=== PATIENT | male | born 1965 | race Caucasian/White ===

== ENCOUNTER 2017-05-13 09:11 | Inpatient (IN) | payer OTHER ==
[~2017-05-13] VITALS: Ht 193 cm; Wt 80.4 kg
[2017-05-13 09:49] LABS: BASOPHILS % (AUTO) 0.3 % (0-1); EOSINOPHILS # (AUTO) 0.1 X10'3 (0-0.9); EOSINOPHILS % (AUTO) 1.4 % (0-6); HEMATOCRIT 42.7 % (42.0-52.0); HEMOGLOBIN 14.9 g/dl (14.0-17.9); LYMPHOCYTES # (AUTO) 0.9 X10'3 (1.1-4.8); LYMPHOCYTES % (AUTO) 15.4 % (21-51); MEAN CORPUSCULAR HEMOGLOBIN 31.8 PG (27.0-31.0); MEAN CORPUSCULAR VOLUME 90.9 FL (78-98); MEAN PLATELET VOLUME 8.3 FL (7.4-10.4); MONOCYTES # (AUTO) 0.5 X10'3 (0-0.9); MONOCYTES % (AUTO) 8.1 % (2-12); NEUTROPHILS # (AUTO) 4.5 X10'3 (1.8-7.7); NEUTROPHILS % (AUTO) 74.8 % (42-75); PLATELET COUNT 185 X10'3 (140-440); RED CELL DISTRIBUTION WIDTH 14.1 % (11.5-14.5); WHITE BLOOD COUNT 6.1 X10'3 (4.5-11.0)
[2017-05-13 10:11] LABS: URINE AMPHETAMINE SCREEN NEGATIVE (Neg); URINE BARBITUATE SCREEN NEGATIVE (Neg); URINE BENZODIAZEPINES SCREEN NEGATIVE (Neg); URINE CANNABINOID SCREEN NEGATIVE (Neg); URINE COCAINE SCREEN NEGATIVE (Neg); URINE METHADONE SCREEN NEGATIVE (Neg); URINE OPIATE SCREEN NEGATIVE (Neg); URINE PHENCYCLIDINE SCREEN NEGATIVE (Neg)
[2017-05-13 10:12] LABS: ALANINE AMINOTRANSFERASE 54 U/L (12-78); ALBUMIN 4.3 G/DL (3.4-5.0); ALBUMIN/GLOBULIN RATIO 1.3 (1.1-1.5); ALKALINE PHOSPHATASE 107 IU/L (46-116); ANION GAP 5 (8-16); ASPARTATE AMINO TRANSFERASE 47 U/L (10-37); BILIRUBIN,TOTAL 0.4 MG/DL (0.1-1.0); BLOOD UREA NITROGEN 15 MG/DL (7-18); BUN/CREATININE RATIO 16.7 (5.4-32.0); CALCIUM 9.3 MG/DL (8.5-10.1); CHLORIDE 107 MMOL/L (99-107); GLUCOSE 81 MG/DL (70-104); POTASSIUM 4.5 MMOL/L (3.5-5.1); SODIUM 144 MMOL/L (135-145); TOTAL CARBON DIOXIDE 32.2 MMOL/L (24-32); TOTAL PROTEIN 7.5 G/DL (6.4-8.2); eGFR 88 ML/MIN
[2017-05-13] MEDS ORDERED: magnesium 2GM in 50ml NS 50 ML IV PRN (11:20)
[2017-05-13] MEDS ORDERED: potassium Cl 20 mEq SR tablet PO PRN ×2 (11:20)
[2017-05-13] MEDS ORDERED: potassium Cl 40MEQ/NS 500ml 500 ML IV PRN ×2 (11:20)
[2017-05-13] MEDS ORDERED: magnesium Cl slow-release 64mg tablet PO PRN (11:20)
[2017-05-13] MEDS ORDERED: magnesium hydroxide 30ml (MOM) UD suspension PO PRN (11:20)
[2017-05-13] MEDS ORDERED: ondansetron/PF 4mg/2ml inj IV PRN (11:20)
[2017-05-13] MEDS ORDERED: bisacodyl 10mg suppository rectal RC PRN (11:20)
[2017-05-13] MEDS ORDERED: mag hydrox/Alum hydrox/simeth 30ml oral suspension PO PRN (11:20)
[2017-05-13] MEDS ORDERED: magnesium 4gm in 100ml NS 100 ML IV PRN (11:20)
[2017-05-13] MEDS ORDERED: LORazepam 2 mg/ml vial IV PRN (11:25)
[2017-05-13] MEDS ORDERED: NO HOME MEDS (11:29)
[2017-05-13 11:59] LABS: CREATINE KINASE 223 U/L (39-308)
[2017-05-13 18:32] VITALS: BP 118/71
[2017-05-13 21:56] VITALS: BP 121/57
[2017-05-13] MEDS ORDERED: ibuprofen tablet 400 MG TABLET PO PRN (22:30)
[2017-05-13] MEDS ORDERED: morphine 2 MG/ML inj. syringe IV PRN (22:35)
[2017-05-14 06:00] VITALS: BP 108/71
[2017-05-14 06:59] LABS: ALBUMIN 3.5 G/DL (3.4-5.0); ANION GAP 6 (8-16); BLOOD UREA NITROGEN 23 MG/DL (7-18); CALCIUM 9.1 MG/DL (8.5-10.1); CHLORIDE 107 MMOL/L (99-107); GLUCOSE 88 MG/DL (70-104); MAGNESIUM 1.9 MG/DL (1.5-2.4); SODIUM 143 MMOL/L (135-145); TOTAL CARBON DIOXIDE 30.5 MMOL/L (24-32); eGFR 78 ML/MIN
[2017-05-14 07:02] LABS: POTASSIUM 6.2 MMOL/L (3.5-5.1)
[2017-05-14] MEDS: K and/or MAG REPLACEMENT MC SCH (08:00)
[2017-05-14] MEDS: enoxaparin 40mg/0.4ml syringe SUBCUT SCH (08:20)
[2017-05-14 10:42] VITALS: BP 117/70
[2017-05-14] MEDS ORDERED: ibuprofen tablet 400 MG TABLET PO PRN (12:20)
[2017-05-14 18:00] VITALS: BP 132/72
[2017-05-14 22:00] VITALS: BP 124/65
[2017-05-15 06:00] VITALS: BP 115/68
[2017-05-15 06:39] LABS: ALBUMIN 3.5 G/DL (3.4-5.0); ANION GAP 5 (8-16); BLOOD UREA NITROGEN 27 MG/DL (7-18); BUN/CREATININE RATIO 24.5 (5.4-32.0); CALCIUM 9.2 MG/DL (8.5-10.1); CHLORIDE 107 MMOL/L (99-107); GLUCOSE 98 MG/DL (70-104); MAGNESIUM 1.8 MG/DL (1.5-2.4); POTASSIUM 5.6 MMOL/L (3.5-5.1); SODIUM 143 MMOL/L (135-145); TOTAL CARBON DIOXIDE 31.3 MMOL/L (24-32); eGFR 70 ML/MIN
[2017-05-15] MEDS: K and/or MAG REPLACEMENT MC SCH (08:52)
[2017-05-15] MEDS: enoxaparin 40mg/0.4ml syringe SUBCUT SCH (08:55)
[2017-05-15 10:30] VITALS: BP 128/74
[2017-05-15 19:00] VITALS: BP 125/71
== END 2017-05-15 21:44 | DRG 57 ==
LOC: ER 09:11 → EEVIPCON 09:11 → ED HOLD 10:49 → OBSVTOIN 10:49 → ORTHO 4S 11:27
PROVIDERS: ADMIT Internal Medicine; ATTEND Internal Medicine
DX: G25.89 Other specified extrapyramidal and movement disorders (principal); B19.20 Unspecified viral hepatitis C without hepatic coma; F44.9 Dissociative and conversion disorder, unspecified; G40.909 Epilepsy, unspecified, not intractable, without status epilepticus; G47.33 Obstructive sleep apnea (adult) (pediatric); I34.1 Nonrheumatic mitral (valve) prolapse; F17.210 Nicotine dependence, cigarettes, uncomplicated; Z88.6 Allergy status to analgesic agent
CPT/HCPCS: 36415; 70450; 80048; 80053; 80305; 82550; 83605; 83735; 84132; 84443; 85025; 87070; 95951; 99285; J1650